=== PATIENT | female | born 1995 | race Caucasian/White ===

== ENCOUNTER 2019-07-22 20:08 | Emergency (ER) | payer OTHER ==
[2019-07-22 20:31] VITALS: TEMP 98.1; BMI 30.9
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
[2019-07-22 23:37] VITALS: BP 130/79; PULSE 73
[2019-07-23] MEDS ORDERED: DEXTROSE 5%-LACTATED RINGERS 1,000 ML IV ONE (02:05)
== END 2019-07-23 02:15 | disposition home or self-care (01) ==
LOC: JER 20:08
DX: O26.893 Other specified pregnancy related conditions, third trimester (principal); Z04.1 Encounter for examination and observation following transport accident; V73.5XXA Driver of bus injured in collision with car, pick-up truck or van in traffic accident, initial encounter; Y92.414 Local residential or business street as the place of occurrence of the external cause; Y93.89 Activity, other specified; Y99.0 Civilian activity done for income or pay; Z3A.30 30 weeks gestation of pregnancy
CPT/HCPCS: 76801-TC; 99282-25

== ENCOUNTER 2019-09-01 12:15 | Inpatient (IN) | payer OTHER ==
[~2019-09-01 12:15] MED LIST: ELECTROLYTE-148 SOLN 1,000 ML IV SCH
[2019-09-01] MEDS ORDERED: ELECTROLYTE-148 SOLN 1,000 ML IV SCH ×2 (13:00→14:30)
[2019-09-01] MEDS ORDERED: OXYTOCIN 20 UNITS in 0.9% NS 40 UNIT/2,000 ML INFUS.BAG IV ONE (13:50)
[2019-09-01] MEDS ORDERED: DEXAMETHASONE SOD PHOSPHATE 4 MG/1 ML VIAL ONE (13:55)
[2019-09-01] MEDS ORDERED: NEOSTIGMINE METHYLSULFATE 0.5 MG/1 ML - 10 ML MDV ONE (13:55)
[2019-09-01] MEDS ORDERED: morphine SULFATE/PF 0.5 MG/ML (2cc Syringe - QUVA) ONE (13:55)
[2019-09-01] MEDS ORDERED: PHENYLEPHRINE HCL 10 MG/1 ML SINGLE DOSE VIAL ONE (13:56)
[2019-09-01 13:59] VITALS: BMI 30.9
[2019-09-01] MEDS ORDERED: ONDANSETRON 4 MG/2 ML VIAL IVPUSH PRN (14:03)
[2019-09-01] MEDS ORDERED: CITRIC ACID/SODIUM CITRATE 30 ML UNIT-DOSE CUP PO ONE ×2 (14:15→14:26)
[2019-09-01] MEDS ORDERED: ceFAZolin SODIUM 1 GM VIAL ONE (14:29)
--- NOTE | 2019-09-01 14:29 | HP ---
Past Medical History - Admission Chief Complaint: Repeat C/S History of Present Illness: 24yo @ 36.0wks by LMP/sono here for Repeat C/S. No VB/LOF. No ctx. +FM Preg c/b prior "T" Classical incision C/S for 24wk PTD for breech, received Caren injections this , otherwise uncomplicated PNC @ [address] - Past Medical History ...: 3 ...Para: 1 ...Term: 1 ...: 0 ...Spon : 0 ...Induced : 1 ...Multiple Gestation: 0 ...LMP: 12/23/18 ... Weeks Gestation by Dates: 36.0 ...EDC by Dates: 09/29/19 ...EDC by Sono: 09/29/19 Heme/Onc: Yes: Anemia Infectious Disease: No: AIDS, C-Diff, Herpes Zoster, HIV, MRSA, STD's, Tuberculosis, VREF, Other Psych: No: Addictions, Anxiety, Bipolar, Depression, Panic, Psychosis, Schizophrenia, Other Musculoskeletal: No: Bursitis, Chronic low back pain, Hemiparesis, Hemiplegia, Osteoarthritis, Paraplegia, Other Endocrine: No: Reyes's Disease, Lidya's Disease, Diabetes Insipidus, Diabetes Mellitus, Hyperparathyroidism, Hyperthyroidism, Hypothyroidism, Osteopenia, SIADH, Other Dermatology: No: Basal Cell, Cellulitis, Eczema, Melanoma, Psoriasis, Squamous Cell, Other - Past Surgical History Past Surgical History: Yes: Hx Myomectomy: No Hx Transabdominal Cerclage: No Additional Surgical History: History of "T" Classical C-Sec tion - Smoking History Smoking history: Never smoked Have you smoked in the past 12 months: No - Alcohol/Substance Use Hx Alcohol Use: No History of Substance Use: reports: None - Social History Usual Living Arrangement: Yes: With Spouse Do you think of yourself as: Straight/Heterosexual ADL: Independent History of Recent Travel: No Home Medications - Allergies Allergies/Adverse Reactions: Allergies Allergy/AdvReac Type Severity Reaction Status Date / Time kiwi Allergy Severe Swelling Verified 09/01/19 12:47 - Home Medications Home Medications: Ambulatory Orders Vitamins (Sjr) - 1 tab PO DAILY 07/23/19 Ferrous Sulfate [Feosol] 325 mg PO DAILY #30 tablet 09/01/19 Ibuprofen [Motrin -] 600 mg PO QID PRN #28 tablet 09/01/19 Oxycodone HCl/Acetaminophen [Percocet 5-325 mg Tablet -] 1 - 2 tab PO Q6H PRN # 20 tab MDD 4 09/01/19 Review of Systems - Review of Systems Constitutional: denies: No Symptoms, Chills, Diaphoresis, Fever, Lethargy, Loss of Appetite, Malaise, Night Sweats, Unintentional Wgt. Loss, Weakness, Other Respiratory: denies: No Symptoms, Cough, Exercise Intolerance, Hemoptysis, Orthopnea, PND, Snoring, SOB, SOB on Exertion, Wheezing, Other Gastrointestinal: denies: No Symptoms, Abdominal Pain, Bloating, Constipation, Diarrhea, Dysphagia, Indigestion, Melena, Nausea, Rectal Bleeding, Vomiting, Vomiting Blood, Other Genitourinary: denies: No Symptoms, Burning, Discharge, Dysuria, Flank Pain, Frequency, Hematuria, Incontinence, Lesions, Menses, Pain, Testicular Mass, Testicular Pain, Testicular Swelling, Urgency, Vaginal Bleeding, Other Physical Exam - Maternity Vital Signs: Vital Signs Temperature 98.5 F 09/01/19 12:45 Pulse Rate 87 09/01/19 12:45 Respiratory Rate 18 09/01/19 12:45 Blood Pressure 137/83 09/01/19 12:45 O2 Sat by Pulse Oximetry (%) Constitutional: Yes: Well Nourished, No Distress, Calm - Abdominal Exam/OB Number of Fetuses: Single Presentation: Vertex Contractions: No Heart Rate Location: [facility] Category: I Accelerations: Non-Uniform Decelerations: None - Vaginal Exam/OB Vaginal Bleediing: No Speculum Exam: No Amniotic Membrane Status: Intact Presentation: Vertex/Position - Physical Exam Edema: No Imaging - Results Ultrasound: Report Reviewed Assessment/Plan 24yo @ 36wks by LMP/sono here for scheduled Repeat C/S Admit to L&D NPO, IVFs Cat I tracing Elizabeth Franco Ancef Risk of procedure reviewed including bleeding, infection, injury to bladder/ bowel/adnexa/vessels/nerves. All questions answered. Consent signed (declined transfusion 2/2 shinto beliefs) Denton Whitt MD
[2019-09-01] MEDS ORDERED: KETOROLAC TROMETHAMINE 30 MG/1 ML VIAL ONE (14:57)
--- NOTE | 2019-09-01 15:39 | OP ---
Operative Note - Note: Operative Date: 09/01/19 Pre-Operative Diagnosis: 36week , Prior Classical C/S Operation: Repeat Low Transverse Findings: VMI, CESAR, no nuchal, no meconium. Weight 7.5lbs, Apgars 9/9 Right ovary and tube not visualized 2/2 adhesions, left tube and ovary palpably normal Post-Operative Diagnosis: Same as Pre-op Surgeon: Lucille Whitt [employer] Laminating Operator: Abdoul Garner Anesthesia: Spinal Estimated Blood Loss (mls): 700 Drains, Volume Out (mls): 200 Operative Report Dictated: Yes
[2019-09-01] MEDS ORDERED: oxyCODONE HCL 5 MG TABLET PO PRN (15:40)
[2019-09-01] MEDS ORDERED: METHYLERGONOVINE MALEATE 0.2 MG/1 ML AMP IM PRN (15:40)
[2019-09-01] MEDS: OXYTOCIN 20 UNITS in 0.9% NS 20 UNIT/1,000 ML INFUS.BAG IV SCH (17:30)
[2019-09-01] MEDS ORDERED: OXYTOCIN 20 UNITS in 0.9% NS 20 UNIT/1,000 ML INFUS.BAG IV ONE (17:35)
--- NOTE | 2019-09-01 20:42 | OP ---
DATE OF OPERATION: 09/01/2019 PREOPERATIVE DIAGNOSIS: A 36-week , prior classical section. POSTOPERATIVE DIAGNOSIS: A 36-week , prior classical section. PROCEDURE: Repeat low transverse section. ANESTHESIA: Spinal. ESTIMATED BLOOD LOSS: 800. INTRAVENOUS FLUIDS: Per anesthesia record. URINE OUTPUT: 200 mL of clear urine at end of procedure. SURGEON: Lucille Whitt M.D. ENVIRONMENTAL STUDIES PROFESSOR: Christian Estrella FINDINGS: Viable male infant, CESAR position, no nuchal, no meconium. Weight 5 pounds 14 ounces, Apgars 9 and 9. Right tube and ovary not visualized secondary to adhesions, left tube and ovary palpably normal. COMPLICATIONS: None. CONDITION: Stable to recovery room. DESCRIPTION OF PROCEDURE: After appropriate consents were signed, patient was taken to the operating room. Spinal anesthesia was administered. Franco catheter had been inserted in the operating room. The abdomen was prepped and draped in the normal sterile fashion. Timeout was performed confirming correct patient and procedure. After anesthesia had been confirmed, a Pfannenstiel skin incision was made to the prior Pfannenstiel incision and carried through to the underlying layers until the fascia was nicked in the midline. Fascia was then extended laterally with the Story scissors. The inferior aspect of the fascia was then grasped with Ihsan clamps , tented upwards, and the rectus muscles dissected off bluntly and with the Story scissors. Attention was then paid to the superior aspect, which was taken down in a similar fashion. The rectus muscles were then bluntly in the midline. The peritoneum was entered bluntly. Bony adhesions on the anterior lower uterine segment to the anterior abdominal wall were noted and taken down with Metzenbaum scissors. Bladder blade was then inserted. Bladder flap was created after nicking the uterine vesicular reflexion in the midline, extending it laterally with the Metzenbaum scissors and creating it digitally. The bladder blade was then reinserted. The uterus was incised in a low transverse fashion. Clear amniotic fluid was noted. The infant's head was delivered with the assistance of a vacuum with no popoffs. The vacuum was removed upon delivery of the head. The remaining shoulders and body were delivered without difficulty . The cord was clamped and cut, the was handed off to the waiting NICU staff. The placenta was then removed manually. The uterus was cleared of all clot and debris. The hysterotomy was closed in a single imbricating vertical layer with a 1-0 Vicryl with good hemostasis. The adnexa were inspected, however secondary to adhesions the anterior abdominal wall and the adnexa could not be appropriately viewed on the patient's right side. On the patient's left, the adnexa were only appreciated on palpation and noted to be normal. Hysterotomy was reinspected and noted to be hemostatic. Rectus muscles were then closed with 2-0 chromic. The fascia was closed with 0 Vicryl. Subcutaneous tissue was closed with 3-0 plain. The skin was closed with 3-0 Biosyn. Dressings placed. All sponge, lap, needle count was correct x3. Patient did receive Ancef at the start of the procedure. She was taken from the operating room to the recovery area in stable condition. MD YVONNE SEAMAN/[id number] MTDD
--- NOTE | 2019-09-01 22:42 | PN ---
Progress Note (short form) - Note Progress Note: Dressing saturated and changed, Stables vitals and patient is asymptomatic. No active bleeding from the incision noted. Pressure dressing applied. All questions answered. -AM CBC
[2019-09-01] MEDS: IBUPROFEN 800 MG/8 ML IJ IVPB PRN (22:48)
[2019-09-02] MEDS: OXYTOCIN 20 UNITS in 0.9% NS 20 UNIT/1,000 ML INFUS.BAG IV SCH (02:08)
--- NOTE | 2019-09-02 07:45 | PN ---
Progress Note (short form) - Note Progress Note: Anesthesia Post Op Note Pt seen s/p spinal w/ duramorph for c/section Pt awake alert denies n/v, no h/a ambulating well no urinary retention good pain control VSS no apparent anesthesia complications Trinity Soares.
[2019-09-02] MEDS: IBUPROFEN 800 MG/8 ML IJ IVPB PRN (07:51)
--- NOTE | 2019-09-02 08:17 | PN ---
Post Progress Note - Subjective Subjective: Patient is doing well, ambulating, tolerating PO, lochia decreased, rodriguez just removed, PP/post-op precautions discussed. Post Day: 1 Type of Delivery: Repeat C/S Vital Signs: Vital Signs Temperature 98.5 F 09/02/19 06:00 Pulse Rate 85 09/02/19 06:00 Respiratory Rate 18 09/02/19 06:00 Blood Pressure 137/80 09/02/19 06:00 O2 Sat by Pulse Oximetry (%) 100 09/01/19 17:15 Breast Exam: Yes: Other (deferred) Uterus: Yes: Fundus Firm Incision: Yes: Dressing dry and intact (removed) Abdomen/GI: Yes: Abdomen soft Lochia, amount: Small Extremities: Yes: Calves non-tender Activity: Ambulating - Labs Labs: AM CBC pending Assessment/Plan POD # 1 in stable condition S/P CD, dressing changed twice following surgery for saturation, no active bleeding -AM CBC -Ambulation -Patient express desire for circumcision
[2019-09-02] MEDS: PRENATAL VITAMINS W/ FOLIC ACID TABLET (FP) PO SCH (10:27)
[2019-09-02] MEDS: FERROUS SO4 325 MG TABLET (FP) PO SCH ×2 (10:27→17:18)
[2019-09-02 10:53] LABS: BASO % 0.4 % (0-2.0); EOS % 0.7 % (0-4.5); HEMATOCRIT 29.5 % (32.4-45.2); HEMOGLOBIN 9.8 GM/dL (10.7-15.3); LYMPH % 14.4 % (8-40); MCH 29.6 pg (25.7-33.7); MEAN CELL VOLUME 89.5 fl (80-96); MEAN PLT VOLUME 8.4 fl (7.5-11.1); MONO % 9.8 % (3.8-10.2); NEUT % 74.7 % (42.8-82.8); PLATELET COUNT 155 K/MM3 (134-434); RDW 13.8 % (11.6-15.6); WHITE BLOOD COUNT 15.2 K/mm3 (4.0-10.0)
[2019-09-02] MEDS: IBUPROFEN 600 MG TABLET (FP) PO PRN ×3 (12:52→22:40)
[2019-09-02] MEDS ORDERED: BISACODYL 10 MG SUPP.RECT RC PRN (15:40)
[2019-09-02] MEDS: SIMETHICONE 80 MG TAB.CHEW (FP) PO PRN ×2 (18:36→22:40)
[2019-09-03] MEDS: SIMETHICONE 80 MG TAB.CHEW (FP) PO PRN ×5 (03:43→21:33)
[2019-09-03] MEDS: IBUPROFEN 600 MG TABLET (FP) PO PRN ×5 (03:43→21:32)
--- NOTE | 2019-09-03 07:24 | PN ---
Progress Note (short form) - Note Progress Note: pod 2s/p c/s, doing well , ambulating CBC, BMP 09/02/19 10:20 Last Vital Signs Temp Pulse Resp BP Pulse Ox 97.6 F 90 18 117/74 100 09/02/19 22:00 09/02/19 22:00 09/02/19 22:00 09/02/19 22:00 09/01/19 17:15 abdomen soft, no distension, no cva incision dry, clean no calf tenderness lochai mild plan ambulate, cbc in am pain management
[2019-09-03] MEDS: ACETAMINOPHEN 325 MG TABLET (FP) PO PRN ×4 (08:28→21:29)
[2019-09-03] MEDS: FERROUS SO4 325 MG TABLET (FP) PO SCH ×2 (08:31→17:18)
[2019-09-03] MEDS: PRENATAL VITAMINS W/ FOLIC ACID TABLET (FP) PO SCH (10:55)
[2019-09-04] MEDS: ACETAMINOPHEN 325 MG TABLET (FP) PO PRN ×5 (02:45→21:08)
[2019-09-04] MEDS: IBUPROFEN 600 MG TABLET (FP) PO PRN ×5 (02:45→21:08)
[2019-09-04] MEDS: SIMETHICONE 80 MG TAB.CHEW (FP) PO PRN ×5 (02:45→21:11)
--- NOTE | 2019-09-04 07:30 | PN ---
Post Progress Note - Subjective Subjective: 24 yo Para 2 status post delivery, seen and evaluated. Doing well. Post Day: 2 Type of Delivery: Repeat C/S Vital Signs: Vital Signs Temperature 97.8 F 09/04/19 06:00 Pulse Rate 69 09/04/19 06:00 Respiratory Rate 18 09/04/19 06:00 Blood Pressure 134/81 09/04/19 06:00 O2 Sat by Pulse Oximetry (%) 100 09/01/19 17:15 Breast Exam: Yes: Soft Uterus: Yes: Fundus Firm Incision: Yes: Dressing dry and intact Abdomen/GI: Yes: Abdomen soft Lochia: Yes: Rubra Lochia, amount: Small Extremities: Yes: Calves non-tender Perineum: Yes: Intact Activity: Ambulating - Labs Labs: CBC WBC 15.2 K/mm3 (4.0-10.0) H 09/02/19 10:20 RBC 3.30 M/mm3 (3.60-5.2) L 09/02/19 10:20 Hgb 9.8 GM/dL (10.7-15.3) L 09/02/19 10:20 Hct 29.5 % (32.4-45.2) L D 09/02/19 10:20 MCV 89.5 fl (80-96) 09/02/19 10:20 MCH 29.6 pg (25.7-33.7) 09/02/19 10:20 MCHC 33.0 g/dl (32.0-36.0) 09/02/19 10:20 RDW 13.8 % (11.6-15.6) 09/02/19 10:20 Plt Count 155 K/MM3 (134-434) D 09/02/19 10:20 MPV 8.4 fl (7.5-11.1) 09/02/19 10:20 Absolute Neuts (auto) 11.3 K/mm3 (1.5-8.0) H 09/02/19 10:20 Neutrophils % 74.7 % (42.8-82.8) 09/02/19 10:20 Lymphocytes % 14.4 % (8-40) 09/02/19 10:20 Monocytes % 9.8 % (3.8-10.2) 09/02/19 10:20 Eosinophils % 0.7 % (0-4.5) 09/02/19 10:20 Basophils % 0.4 % (0-2.0) 09/02/19 10:20 Nucleated RBC % 0 % (0-0) 09/02/19 10:20 Problem List - Problems (1) Status post Problems reviewed: Yes Code(s): Z98.891 - HISTORY OF UTERINE SCAR FROM PREVIOUS SURGERY Assessment/Plan Status post delivery at 36 weeks Ambulation Analgesia as needed Continue routine post op care
[2019-09-04 10:13] LABS: BASO % 0.2 % (0-2.0); HEMATOCRIT 28.4 % (32.4-45.2); HEMOGLOBIN 9.6 GM/dL (10.7-15.3); MCH 30.5 pg (25.7-33.7); MCHC 33.7 g/dl (32.0-36.0); MEAN CELL VOLUME 90.5 fl (80-96); MEAN PLT VOLUME 8.6 fl (7.5-11.1); MONO % 7.2 % (3.8-10.2); NEUT % 74.6 % (42.8-82.8); PLATELET COUNT 162 K/MM3 (134-434); RBC 3.14 M/mm3 (3.60-5.2); RDW 14.7 % (11.6-15.6); WHITE BLOOD COUNT 10.8 K/mm3 (4.0-10.0)
[2019-09-04] MEDS: FERROUS SO4 325 MG TABLET (FP) PO SCH ×2 (10:21→16:57)
[2019-09-04] MEDS: PRENATAL VITAMINS W/ FOLIC ACID TABLET (FP) PO SCH (10:21)
[2019-09-05] MEDS: IBUPROFEN 600 MG TABLET (FP) PO PRN ×3 (00:55→17:33)
[2019-09-05] MEDS: SIMETHICONE 80 MG TAB.CHEW (FP) PO PRN ×3 (00:55→18:05)
[2019-09-05] MEDS: ACETAMINOPHEN 325 MG TABLET (FP) PO PRN ×3 (00:55→17:34)
[2019-09-05] MEDS: FERROUS SO4 325 MG TABLET (FP) PO SCH ×2 (08:50→17:33)
[2019-09-05] MEDS: PRENATAL VITAMINS W/ FOLIC ACID TABLET (FP) PO SCH (10:21)
--- NOTE | 2019-09-05 10:32 | PN ---
Post Progress Note - Subjective Subjective: 24 yo Para 4 status post , seen and evaluated. She c/o cold sores of the lip and requests medication. Post Day: 4 Type of Delivery: Primary C/S Vital Signs: Vital Signs Temperature 97.8 F 09/04/19 22:00 Pulse Rate 70 09/04/19 22:00 Respiratory Rate 18 09/04/19 22:00 Blood Pressure 129/78 09/04/19 22:00 O2 Sat by Pulse Oximetry (%) 100 09/01/19 17:15 Breast Exam: Yes: Soft Uterus: Yes: Fundus Firm Incision: Yes: Other (Steri strips in place) Abdomen/GI: Yes: Abdomen soft, Tolerating PO Lochia: Yes: Rubra Lochia, amount: Small Extremities: Yes: Calves non-tender Perineum: Yes: Intact Activity: Ambulating - Labs Labs: CBC WBC 10.8 K/mm3 (4.0-10.0) H 09/04/19 09:00 RBC 3.14 M/mm3 (3.60-5.2) L 09/04/19 09:00 Hgb 9.6 GM/dL (10.7-15.3) L 09/04/19 09:00 Hct 28.4 % (32.4-45.2) L 09/04/19 09:00 MCV 90.5 fl (80-96) 09/04/19 09:00 MCH 30.5 pg (25.7-33.7) 09/04/19 09:00 MCHC 33.7 g/dl (32.0-36.0) 09/04/19 09:00 RDW 14.7 % (11.6-15.6) 09/04/19 09:00 Plt Count 162 K/MM3 (134-434) 09/04/19 09:00 MPV 8.6 fl (7.5-11.1) 09/04/19 09:00 Absolute Neuts (auto) 8.0 K/mm3 (1.5-8.0) 09/04/19 09:00 Neutrophils % 74.6 % (42.8-82.8) 09/04/19 09:00 Lymphocytes % 15.0 % (8-40) 09/04/19 09:00 Monocytes % 7.2 % (3.8-10.2) 09/04/19 09:00 Eosinophils % 3.0 % (0-4.5) D 09/04/19 09:00 Basophils % 0.2 % (0-2.0) 09/04/19 09:00 Nucleated RBC % 0 % (0-0) 09/04/19 09:00 Problem List - Problems (1) Status post Problems reviewed: Yes Code(s): Z98.891 - HISTORY OF UTERINE SCAR FROM PREVIOUS SURGERY Assessment/Plan Status post delivery at 36 weeks Ambulation Analgesia as needed Continue routine post op care
[2019-09-05 11:51] VITALS: BP 128/78; PULSE 85; TEMP 98.8
[2019-09-05] MEDS ORDERED: ACYCLOVIR 400 MG TABLET PO SCH ×2 (13:00→22:00)
--- NOTE | 2019-09-06 17:26 | PATH ---
Surgical Pathology Report Patient Name: GIOVANI ROSAS [facility]. Rec. #: [id number] /Age/Gender: 1995 (Age: 24) / F Account: [id number] Location: [facility] OBS/FOOD MANAGEMENT AIDE Taken: 09/01/2019 Received: 09/02/2019 Reported: 09/06/2019 Physicians: Lucille Whitt Specimen(s) Received PLACENTA Clinical History , 36 weeks gestation, positive GBS, previous classical incision Final Diagnosis PLACENTA: THIRD TRIMESTER PLACENTA. TRIVASCULAR CORD. MEMBRANES WITH NO DIAGNOSTIC ABNORMALITIES. Electronically Signed Gloria Tan M.D. Gross Description The specimen is received fresh labeled placenta and is a 382 gram, 13.0 x 12.5 x 3.2 cm. placenta with attached membranes and umbilical cord. The attached membranes are gandhi, translucent with focal opacities and insert marginally. The umbilical cord measures 14 cm. in length and averages 1 cm. in diameter. The cord inserts eccentrically, 2 cm. to the nearest margin. No true knots or strictures are identified. Cut surface of the umbilical cord reveals 3 vessels. The surface is forbes-blue with minimal fibrin deposition and appropriate caliber vessels. The maternal surface is red-brown with focal defects. Sectioning reveals red-brown, spongy parenchyma. No lesions are identified. Riding Double sections are submitted in three cassettes as follows: 1- membrane rolls and umbilical cord; 2-3- full thickness sections of placenta. 09/03/2019 [facility]09/03/2019
== END 2019-09-05 18:40 | disposition home or self-care (01) | DRG 540 ==
LOC: JLDR 12:15 → EDUNIT# 14:00 → J3W 17:50
PROVIDERS: ADMIT Obstetrics & Gynecology; ATTEND Obstetrics & Gynecology
PROC: 10D00Z1 Extraction of Products of Conception, Low, Open Approach (ICD-10-PCS; principal; 2019-09-01)
DX: O34.211 Maternal care for low transverse scar from previous cesarean delivery (principal); Z3A.36 36 weeks gestation of pregnancy; Z37.0 Single live birth
CPT/HCPCS: 36415; 85025; 88307-TC

== ENCOUNTER 2019-11-12 17:28 | Emergency (ER) | payer OTHER ==
[2019-11-12 17:36] VITALS: BP 121/80; PULSE 79; TEMP 98; BMI 28.1
--- NOTE | 2019-11-12 18:06 | PDOC ---
History of Present Illness - General Chief Complaint: Cold Symptoms Stated Complaint: fever,cough,flu symptoms Time Seen by Provider: 11/12/19 17:30 - History of Present Illness Initial Comments: HPI: 24yo F with no reported PMH complaining of cough, congestion, fever, chills since Friday. Patient's sick contacts include her who has similar symptoms. Reports a fever of 100.0 yesterday. Cough is productive of yellow-tian sputum. Reports chills. Has taken motrin for her symptoms with some relief of symptoms. No nausea or vomiting. Denies recent travel. No chest pain or shortness of breath. ROS: Constitutional: +fever, +chills HEENT: no throat pain, no dysphagia Cardiovascular: no chest pain, no palpitations Respiratory: +cough, no shortness of breath Gastrointestinal: no abdominal pain, no nausea Genitourinary: no dysuria, no hematuria Musculoskeletal: no myalgia, no arthralgia Skin: no rash, no itching Neurologic: no headache, no weakness Psych: no agitation, no confusion PE: General: Awake, alert, and fully oriented, in no acute distress Head: No signs of trauma Eyes: EOMI, sclera anicteric ENT: Moist mucus membranes Neck: Normal ROM, supple Lungs: Lungs clear, Normal breath sounds Cardio: Regular rhythm, S1 and S2 present Abdomen: Soft, nontender Extremities: Normal range of motion SKIN: Warm, Dry, normal turgor Neurologic: Cranial nerves II through XII grossly intact. Normal speech ED Course/MDM: DDX including but not limited to viral illness, bronchitis, anemia, metabolic derangement Presentation consistent with viral syndrome VS WNL Counseled supportive care Good handwashing Motrin sent to pharmacy Return precautions Stable for discharge Past History - Past Medical History Allergies/Adverse Reactions: Allergies Allergy/AdvReac Type Severity Reaction Status Date / Time kiwi Allergy Severe Swelling Verified 11/12/19 17:32 Home Medications: Ambulatory Orders Ibuprofen 400 mg PO Q6H PRN #30 tablet 11/12/19 Asthma: No Cancer: No Cardiac Disorders: No COPD: No Diabetes: No HTN: No Seizures: No Thyroid Disease: No - Immunization History Immunization Up to Date: Yes - Psycho Social/Smoking Cessation Hx Smoking History: Never smoked Have you smoked in the past 12 months: No Hx Alcohol Use: No Drug/Substance Use Hx: No Hx Substance Use Treatment: No *Physical Exam - Vital Signs Last Vital Signs Temp Pulse Resp BP Pulse Ox 98 F 79 18 121/80 100 11/12/19 17:28 11/12/19 17:28 11/12/19 17:28 11/12/19 17:28 11/12/19 17:28 Discharge - Discharge Information Problems reviewed: Yes Clinical Impression/Diagnosis: Cough Condition: Stable Disposition: HOME - Additional Discharge Information Prescriptions: Ibuprofen 400 mg PO Q6H PRN #30 tablet PRN Reason: Pain - Follow up/Referral - Patient Discharge Instructions Patient Printed Discharge Instructions: DI for Viral Upper Respiratory Infection -- Adult Additional Instructions: You came into the emergency department. Your exam did not indicate acute pathology. Eat and hydrate throughout the day to prevent dehydration and low blood sugar levels. Prescription for ibuprofen (also available over the counter) sent to your pharmacy. Take as instructed. Follow up with your primary care physician within 72 hours. Call and make an appointment to further evaluate your symptoms. Your workup is not complete until you do so. Immediate medical attention is required if you have: any chest pain, palpitations, shortness of breath, severe headaches, changes in vision, episodes of fainting, focal numbness or weakness, any severe abdominal pain, any black tarry stool, or any new or concerning symptoms. If you think you are having an emergency, call for emergency medical services or present to the emergency department right away. - Post Discharge Activity
[2019-11-12] MEDS ORDERED: IBUPROFEN 600 MG TABLET (FP) PO ONE ×2 (18:07→18:11)
--- NOTE | 2019-11-12 18:28 | PDOC ---
Attending Attestation - Resident Resident Name: Renata Mccoy ED Attending Attestation I have performed the following: I have examined & evaluated the patient, The case was reviewed & discussed with the resident, I agree w/resident's findings & plan, Exceptions are as noted - HPI HPI: 11/12/19 18:26 He is better but still little shaky 24-year-old female no past medical history here today complaining of sore throat cough and congestion is myalgias. Patient states that it started initially with a headache and sore throat since then has developed a fever and a cough. States that she was febrile yesterday to 100.0. Today she is no longer having fevers is tolerating p.o. no nausea no vomiting no rash no recent travel. Her is here to be seen also was sick with sinusitis-like symptoms as well as cough and congestion. Patient states she has a 2-month-old at home no known sick flu contacts no shortness of breath no confusion no other current complaints symptoms started 5 days ago - Physicial Exam PE: 11/12/19 18:27 Awake alert no acute distress bilateral turbinate enlargement with clear rhinorrhea. Throat shows posterior pharynx cobblestoning there is no tonsillar exudates mild erythema. Lungs are clear bilaterally heart is regular 30 murmurs rubs or gallops abdomen soft nontender extremities are warm well perfused skin is warm and dry no rash patient is awake alert and oriented x3 - Medical Decision Making 11/12/19 18:27 24-year-old female here with likely viral pharyngitis/bronchitis. Possible influenza plan Motrin for her pain lots of hydration and rest symptomatic treatment. DC to home follow-up as needed
== END 2019-11-12 18:25 | disposition home or self-care (01) ==
LOC: FER 17:28
DX: R05 Cough (principal); Z91.018 Allergy to other foods
CPT/HCPCS: 99281-25

== ENCOUNTER 2020-09-13 15:55 | Emergency (ER) | payer OTHER ==
[2020-09-13 16:19] VITALS: BMI 27.4
[2020-09-13 18:01] LABS: EPI CELLS 26 /uL (0-25.1); HYALINE CASTS 2 /uL (0-3.1); URINE APPEARANCE TURBID; URINE BACTERIA 579 /uL (0-1359); URINE BILIRUBIN NEGATIVE (NEGATIVE); URINE COLOR RED; URINE GLUCOSE (UA) NEGATIVE (NEGATIVE); URINE KETONE NEGATIVE (NEGATIVE); URINE LEUK ESTERASE 1+ (NEGATIVE); URINE NITRITE NEGATIVE (NEGATIVE); URINE PROTEIN 1+ (NEGATIVE); URINE RBC 6188 /uL (0-23.9); URINE WBC 31 /uL (0-25.8)
[2020-09-13 20:24] VITALS: BP 130/64; PULSE 74; TEMP 98
== END 2020-09-13 20:26 | disposition home or self-care (01) ==
LOC: JER 15:55
DX: O26.851 Spotting complicating pregnancy, first trimester (principal); N30.01 Acute cystitis with hematuria; Z3A.01 Less than 8 weeks gestation of pregnancy
CPT/HCPCS: 36415; 76817-TC; 81003; 84702; 86850; 86900; 86901; 87086; 99284-25

== ENCOUNTER 2020-09-15 15:56 | Emergency (ER) | payer OTHER ==
[2020-09-15 16:34] VITALS: BP 137/81; PULSE 89; TEMP 98.2; BMI 27.4
== END 2020-09-15 18:11 | disposition home or self-care (01) ==
LOC: JERFT 15:56
DX: O03.9 Complete or unspecified spontaneous abortion without complication (principal)
CPT/HCPCS: 36415; 76817-TC; 84702; 99284-25

== ENCOUNTER 2020-12-26 10:33 | Emergency (ER) | payer OTHER ==
[2020-12-26 10:55] VITALS: BP 154/88; PULSE 99; TEMP 98.2; BMI 29.2
[2020-12-26 13:40] LABS: BASO % 0.4 % (0-2.0); EOS % 0.9 % (0-4.5); HEMOGLOBIN 12.7 GM/dL (10.7-15.3); LYMPH % 27.6 % (8-40); MCH 28.7 pg (25.7-33.7); MCHC 33.4 g/dl (32.0-36.0); MEAN PLT VOLUME 8.5 fl (7.5-11.1); MONO % 6.6 % (3.8-10.2); NEUT % 64.5 % (42.8-82.8); PLATELET COUNT 252 K/MM3 (134-434); RBC 4.42 M/mm3 (3.60-5.2); RDW 13.9 % (11.6-15.6); WHITE BLOOD COUNT 12.1 K/mm3 (4.0-10.0)
[2020-12-26 13:55] LABS: POTASSIUM 3.6 mmol/L (3.5-5.1)
[2020-12-26 13:58] LABS: CALCIUM 9.7 mg/dL (8.5-10.1)
[2020-12-26 13:59] LABS: ALBUMIN 4.3 g/dl (3.4-5.0)
[2020-12-26 14:02] LABS: CREATININE 0.6 mg/dL (0.55-1.3)
[2020-12-26 14:03] LABS: BILIRUBIN,TOTAL 0.5 mg/dL (0.2-1); TOT PROT 7.4 g/dl (6.4-8.2)
[2020-12-26] MEDS ORDERED: ACETAMINOPHEN 500 MG TABLET (FP) PO ONE (15:36)
[2020-12-26 15:43] LABS: PH,URINE 6.5 (5.0-8.0); URINE APPEARANCE CLEAR; URINE BILIRUBIN NEGATIVE (NEGATIVE); URINE COLOR YELLOW; URINE GLUCOSE (UA) NEGATIVE (NEGATIVE); URINE KETONE NEGATIVE (NEGATIVE); URINE LEUK ESTERASE NEGATIVE (NEGATIVE); URINE NITRITE NEGATIVE (NEGATIVE); URINE PROTEIN NEGATIVE (NEGATIVE); URINE UROBILINOGEN 0.2 mg/dL (0.2-1.0)
[2020-12-26] MEDS ORDERED: ACETAMINOPHEN 325 MG TABLET (FP) ONE (15:43)
== END 2020-12-26 16:30 | disposition home or self-care (01) ==
LOC: JER 10:33
DX: O26.891 Other specified pregnancy related conditions, first trimester (principal); Z3A.08 8 weeks gestation of pregnancy
CPT/HCPCS: 36415; 76817-TC; 80053; 81003; 84702; 85025; 87077; 87086; 99284-25

== ENCOUNTER 2021-08-01 12:05 | Inpatient (IN) | payer OTHER ==
[2021-08-01] MEDS ORDERED: CITRIC ACID/SODIUM CITRATE 30 ML UNIT-DOSE CUP PO ONE (12:23)
[2021-08-01] MEDS ORDERED: ELECTROLYTE-148 SOLN 1,000 ML IV SCH ×2 (12:30)
[2021-08-01] MEDS ORDERED: morphine SULFATE/PF 1 MG/2 ML (2cc Syringe - QUVA) EP ONE (13:51)
[2021-08-01] MEDS ORDERED: ONDANSETRON 4 MG/2 ML VIAL IVPUSH PRN (13:51)
[2021-08-01] MEDS ORDERED: PROPOFOL 20 ML ONE (14:26)
[2021-08-01] MEDS ORDERED: ceFAZolin SODIUM 1 GM VIAL ONE (14:27)
[2021-08-01] MEDS ORDERED: OXYTOCIN 10 UNIT/ML 10ML MDV ONE ×2 (14:27→15:14)
[2021-08-01] MEDS ORDERED: ONDANSETRON 4 MG/2 ML VIAL ONE (14:27)
[2021-08-01] MEDS ORDERED: KETOROLAC TROMETHAMINE 30 MG/1 ML VIAL ONE ×2 (14:27→15:26)
[2021-08-01] MEDS ORDERED: ePHEDrine SULFATE 50 MG/1 ML AMPULE ONE (14:28)
[2021-08-01] MEDS ORDERED: METHYLERGONOVINE MALEATE 0.2 MG/1 ML AMP IM PRN (15:49)
[2021-08-01] MEDS ORDERED: BENZOCAINE 28 GM HEMORRHOIDAL OINTMENT TP PRN (15:49)
[2021-08-01] MEDS ORDERED: BENZOCAINE 20% 57 GM BOTTLE TP PRN (15:49)
[2021-08-01] MEDS ORDERED: IBUPROFEN 800 MG/8 ML IJ IVPB PRN (15:49)
[2021-08-01] MEDS ORDERED: WITCH HAZEL 50% (TUCKS) 40 PAD/JAR PAD TP PRN (15:49)
[2021-08-01] MEDS ORDERED: OXYTOCIN 20 UNITS in 0.9% NS 20 UNIT/1,000 ML INFUS.BAG IV SCH (16:00)
[2021-08-01] MEDS: FERROUS SO4 325 MG TABLET (FP) PO SCH (17:10)
[2021-08-01] MEDS: IBUPROFEN 600 MG TABLET (FP) PO PRN (21:00)
[2021-08-01] MEDS ORDERED: ACETAMINOPHEN 325 MG TABLET (FP) ONE (21:09)
[2021-08-01] MEDS ORDERED: IBUPROFEN 600 MG TABLET (FP) PO ONE (21:09)
[2021-08-02] MEDS ORDERED: IBUPROFEN 600 MG TABLET (FP) PO ONE (02:28)
[2021-08-02] MEDS: IBUPROFEN 600 MG TABLET (FP) PO PRN ×3 (02:31→17:13)
[2021-08-02 07:56] LABS: BASO % 0.4 % (0-2.0); EOS % 1.7 % (0-4.5); HEMATOCRIT 31.9 % (32.4-45.2); HEMOGLOBIN 10.8 GM/dL (10.7-15.3); LYMPH % 11.2 % (8-40); MCH 29.4 pg (25.7-33.7); MCHC 33.9 g/dl (32.0-36.0); MEAN CELL VOLUME 86.7 fl (80-96); MEAN PLT VOLUME 7.6 fl (7.5-11.1); MONO % 10.5 % (3.8-10.2); NEUT % 76.2 % (42.8-82.8); PLATELET COUNT 180 10^3/uL (134-434); RBC 3.68 M/mm3 (3.60-5.2); RDW 14.5 % (11.6-15.6); WHITE BLOOD COUNT 12.1 K/mm3 (4.0-10.0)
[2021-08-02] MEDS ORDERED: IBUPROFEN 800 MG/8 ML IJ IVPB ONE (08:08)
[2021-08-02] MEDS: FERROUS SO4 325 MG TABLET (FP) PO SCH ×2 (08:19→17:13)
[2021-08-02] MEDS ORDERED: OXYTOCIN 20 UNITS in 0.9% NS 20 UNIT/1,000 ML INFUS.BAG IV ONE (09:17)
[2021-08-02] MEDS: PRENATAL VITAMINS W/ FOLIC ACID TABLET (FP) PO SCH (10:33)
[2021-08-02] MEDS: SIMETHICONE 80 MG TAB.CHEW (FP) PO PRN ×3 (13:26→20:58)
[2021-08-02] MEDS ORDERED: BISACODYL 10 MG SUPP.RECT RC PRN (15:49)
[2021-08-02] MEDS: oxyCODONE HCL 5 MG TABLET PO PRN (20:57)
[2021-08-02] MEDS: SENNOSIDES/DOCUSATE COMBO (SENNA PLUS) TABLET (UD) PO PRN (20:58)
[2021-08-03] MEDS: IBUPROFEN 600 MG TABLET (FP) PO PRN ×4 (01:44→14:49)
[2021-08-03] MEDS: oxyCODONE HCL 5 MG TABLET PO PRN ×4 (01:47→21:14)
[2021-08-03] MEDS: SIMETHICONE 80 MG TAB.CHEW (FP) PO PRN ×6 (01:48→21:14)
[2021-08-03] MEDS ORDERED: DIPHTH,PERTUSS(ACELL),TET 0.5 ML DISP.SYRIN IM ONE (10:00)
[2021-08-03] MEDS: FERROUS SO4 325 MG TABLET (FP) PO SCH ×2 (10:49→17:58)
[2021-08-03] MEDS: PRENATAL VITAMINS W/ FOLIC ACID TABLET (FP) PO SCH (10:49)
[2021-08-03] MEDS: SENNOSIDES/DOCUSATE COMBO (SENNA PLUS) TABLET (UD) PO PRN (21:14)
[2021-08-04] MEDS ORDERED: oxyCODONE HCL 5 MG TABLET PO ONE (00:15)
[2021-08-04] MEDS: IBUPROFEN 600 MG TABLET (FP) PO PRN ×5 (06:16→22:27)
[2021-08-04] MEDS ORDERED: LABETALOL HCL 200 MG TABLET (FP) PO ONE (07:00)
[2021-08-04] MEDS: FERROUS SO4 325 MG TABLET (FP) PO SCH ×2 (07:14→17:31)
[2021-08-04 08:30] LABS: BASO % 0.3 % (0-2.0); EOS % 2.9 % (0-4.5); HEMATOCRIT 31.7 % (32.4-45.2); HEMOGLOBIN 10.7 GM/dL (10.7-15.3); LYMPH % 22.9 % (8-40); MCH 29.6 pg (25.7-33.7); MCHC 33.6 g/dl (32.0-36.0); MEAN CELL VOLUME 88.1 fl (80-96); MEAN PLT VOLUME 7.8 fl (7.5-11.1); MONO % 9.4 % (3.8-10.2); NEUT % 64.5 % (42.8-82.8); PLATELET COUNT 207 10^3/uL (134-434); RDW 14.6 % (11.6-15.6); WHITE BLOOD COUNT 11.2 K/mm3 (4.0-10.0)
[2021-08-04] MEDS: PRENATAL VITAMINS W/ FOLIC ACID TABLET (FP) PO SCH (09:02)
[2021-08-04] MEDS: SIMETHICONE 80 MG TAB.CHEW (FP) PO PRN ×3 (09:02→22:28)
[2021-08-04] MEDS: LABETALOL HCL 200 MG TABLET (FP) PO SCH ×2 (10:30→21:13)
[2021-08-04] MEDS: valACYclovir HCL 500 MG TABLET (FP) PO SCH (21:13)
[2021-08-04] MEDS: SENNOSIDES/DOCUSATE COMBO (SENNA PLUS) TABLET (UD) PO PRN (22:28)
[2021-08-05] MEDS: IBUPROFEN 600 MG TABLET (FP) PO PRN ×2 (02:05→06:10)
[2021-08-05] MEDS: SIMETHICONE 80 MG TAB.CHEW (FP) PO PRN ×2 (02:06→07:01)
[2021-08-05 06:30] VITALS: PULSE 80
[2021-08-05] MEDS: valACYclovir HCL 500 MG TABLET (FP) PO SCH (09:17)
[2021-08-05] MEDS: FERROUS SO4 325 MG TABLET (FP) PO SCH (09:17)
[2021-08-05] MEDS: PRENATAL VITAMINS W/ FOLIC ACID TABLET (FP) PO SCH (09:17)
[2021-08-05] MEDS: LABETALOL HCL 200 MG TABLET (FP) PO SCH (09:19)
[2021-08-05 09:22] VITALS: BP 138/85; TEMP 97.8
== END 2021-08-05 14:00 | disposition home or self-care (01) | DRG 540 ==
LOC: JLDR 12:05 → J3W 08-02 13:18
PROVIDERS: ADMIT Obstetrics & Gynecology; ATTEND Obstetrics & Gynecology
PROC: 10D00Z1 Extraction of Products of Conception, Low, Open Approach (ICD-10-PCS; principal; 2021-08-01)
DX: O34.211 Maternal care for low transverse scar from previous cesarean delivery (principal); O16.4 Unspecified maternal hypertension, complicating childbirth; Z3A.36 36 weeks gestation of pregnancy; Z37.0 Single live birth
CPT/HCPCS: 36415; 80053; 85025; 85610; 86850; 86900; 86901; 88307-TC; 90715; C9803; U0003; U0005